=== PATIENT | female | born 1980 | race Caucasian/White ===

== ENCOUNTER 2021-07-24 18:41 | Emergency (ER) | payer SELFPAY ==
[~2021-07-24] VITALS: Ht 167.6 cm; Wt 70.9 kg
[2021-07-24 19:02] VITALS: BP 92/62
== END 2021-07-24 21:20 | disposition left against medical advice (07) ==
LOC: ER 18:42
DX: M79.605 Pain in left leg (principal); Z53.21 Procedure and treatment not carried out due to patient leaving prior to being seen by health care provider
CPT/HCPCS: 73630

== ENCOUNTER 2025-01-05 17:02 | Emergency (ER) | payer MEDICAID ==
[~2025-01-05] VITALS: Ht 165.1 cm; Wt 70.5 kg
[2025-01-05 17:17] VITALS: BP 128/75; PULSE 86; TEMP 98; O2SAT 100
[2025-01-05 18:19] VITALS: RESP 16
[2025-01-05] MEDS: ondansetron/PF 4mg/2ml inj IV ONE (18:19)
[2025-01-05] MEDS: morphine 4 MG/ML inj SYRINge IV ONE (18:19)
[2025-01-05 19:22] LABS: BASOPHILS % (AUTO) 0.2 % (0-1); EOSINOPHILS % (AUTO) 0.2 % (0-6); HEMATOCRIT 29.7 % (35.0-45.0); HEMOGLOBIN 9.1 g/dl (12.0-16.0); LYMPHOCYTES # (AUTO) 2.5 X10'3 (1.1-4.8); LYMPHOCYTES % (AUTO) 26.2 % (21-51); MEAN CORPUSCULAR HEMOGLOBIN 26.5 PG (27.0-31.0); MEAN CORPUSCULAR HGB CONC 30.5 g/dL (33.0-36.5); MEAN CORPUSCULAR VOLUME 86.7 FL (78-98); MONOCYTES # (AUTO) 0.4 X10'3 (0-0.9); MONOCYTES % (AUTO) 3.9 % (2-12); NEUTROPHILS # (AUTO) 6.7 X10'3 (1.8-7.7); NEUTROPHILS % (AUTO) 69.5 % (42-75); PLATELET COUNT 133 X10'3 (140-440); RED BLOOD COUNT 3.42 X10'6 (4.20-5.60); RED CELL DISTRIBUTION WIDTH 21.6 % (11.5-14.5); WHITE BLOOD COUNT 9.7 X10'3 (4.5-11.0)
[2025-01-05 19:44] LABS: ALANINE AMINOTRANSFERASE 36 U/L (12-78); ALBUMIN 3.4 G/DL (3.4-5.0); ALBUMIN/GLOBULIN RATIO 0.8 (1.1-1.5); ALKALINE PHOSPHATASE 87 IU/L (46-116); ANION GAP 8 (8-16); ASPARTATE AMINO TRANSFERASE 22 U/L (10-37); BILIRUBIN,TOTAL 0.3 MG/DL (0.1-1.0); BLOOD UREA NITROGEN 17 MG/DL (7-18); BUN/CREATININE RATIO 27.4 (10.0-20.0); CALCIUM 8.1 MG/DL (8.5-10.1); CHLORIDE 106 MMOL/L (99-107); CREATININE 0.62 MG/DL (0.40-0.90); GLUCOSE 118 MG/DL (70-104); LIPASE 14 U/L (16-77); POTASSIUM 4.7 MMOL/L (3.5-5.1); SODIUM 141 MMOL/L (135-145); TOTAL CARBON DIOXIDE 26.9 MMOL/L (24-32); TOTAL PROTEIN 7.8 G/DL (6.4-8.2); eCRCL 103 ML/MIN; eGFR > 90 ML/MIN
[2025-01-05 19:53] LABS: ANISOCYTOSIS 2+; POIKILOCYTOSIS 1+
[2025-01-05 19:54] LABS: BURR CELLS 1+; SCHISTOCYTES 1+
== END 2025-01-05 20:11 | disposition home or self-care (01) ==
LOC: ER 17:02
DX: S43.015A Anterior dislocation of left humerus, initial encounter (principal); S42.292A Other displaced fracture of upper end of left humerus, initial encounter for closed fracture; E11.649 Type 2 diabetes mellitus with hypoglycemia without coma; Z88.0 Allergy status to penicillin; Z88.2 Allergy status to sulfonamides; X58.XXXA Exposure to other specified factors, initial encounter; Y93.89 Activity, other specified; Y92.89 Other specified places as the place of occurrence of the external cause; Y99.8 Other external cause status
CPT/HCPCS: 23650; 73020; 73030; 80053; 82948; 83690; 85008; 85025; 96374; 96375; 99284; J2270; J2405; L3650

== ENCOUNTER 2025-02-01 10:07 | Emergency (ER) | payer MEDICAID ==
[~2025-02-01] VITALS: Ht 165.1 cm; Wt 68.2 kg
[2025-02-01 10:11] VITALS: BP 105/74; PULSE 92; RESP 18; TEMP 97.4; O2SAT 97
== END 2025-02-01 12:15 | disposition home or self-care (01) ==
LOC: ER 10:07
DX: G56.22 Lesion of ulnar nerve, left upper limb (principal); Z88.0 Allergy status to penicillin; Z88.2 Allergy status to sulfonamides
CPT/HCPCS: 99282

== ENCOUNTER 2025-03-04 12:36 | Emergency (ER) | payer MEDICAID ==
[~2025-03-04] VITALS: Ht 165.1 cm; Wt 80.0 kg
[2025-03-04 13:17] LABS: BASOPHILS % (AUTO) 0.3 % (0-1); EOSINOPHILS # (AUTO) 0.1 X10'3 (0-0.9); EOSINOPHILS % (AUTO) 0.5 % (0-6); HEMATOCRIT 35.4 % (35.0-45.0); HEMOGLOBIN 11.6 g/dl (12.0-16.0); LYMPHOCYTES # (AUTO) 4.1 X10'3 (1.1-4.8); LYMPHOCYTES % (AUTO) 40.3 % (21-51); MEAN CORPUSCULAR HEMOGLOBIN 27.1 PG (27.0-31.0); MEAN CORPUSCULAR HGB CONC 32.9 g/dL (33.0-36.5); MEAN CORPUSCULAR VOLUME 82.4 FL (78-98); MEAN PLATELET VOLUME 7.1 FL (7.4-10.4); MONOCYTES # (AUTO) 0.4 X10'3 (0-0.9); NEUTROPHILS # (AUTO) 5.6 X10'3 (1.8-7.7); NEUTROPHILS % (AUTO) 54.9 % (42-75); PLATELET COUNT 186 X10'3 (140-440); RED BLOOD COUNT 4.29 X10'6 (4.20-5.60); RED CELL DISTRIBUTION WIDTH 17.2 % (11.5-14.5); WHITE BLOOD COUNT 10.2 X10'3 (4.5-11.0)
[2025-03-04 13:35] LABS: ALANINE AMINOTRANSFERASE 41 U/L (12-78); ALBUMIN 3.5 G/DL (3.4-5.0); ALKALINE PHOSPHATASE 114 IU/L (46-116); ANION GAP 8 (8-16); ASPARTATE AMINO TRANSFERASE 18 U/L (10-37); BILIRUBIN,TOTAL 0.4 MG/DL (0.1-1.0); BLOOD UREA NITROGEN 15 MG/DL (7-18); BUN/CREATININE RATIO 18.3 (10.0-20.0); CALCIUM 8.7 MG/DL (8.5-10.1); CHLORIDE 100 MMOL/L (99-107); CREATININE 0.82 MG/DL (0.40-0.90); GLUCOSE 183 MG/DL (70-104); LIPASE 20 U/L (16-77); POTASSIUM 4.2 MMOL/L (3.5-5.1); SODIUM 137 MMOL/L (135-145); TOTAL CARBON DIOXIDE 28.9 MMOL/L (24-32); eCRCL 78 ML/MIN; eGFR 75 ML/MIN
[2025-03-04] MEDS: dextrose 50%-water 50ml dispensing syringe IV ONE ×2 (14:38→15:52)
[2025-03-04 15:47] LABS: BILIRUBIN,URINE NEGATIVE (Neg); CLARITY,URINE CLEAR (Clear); COLOR,URINE YELLOW (Yellow); GLUCOSE, URINE >=1000 mg/dl (Neg); KETONES,URINE NEGATIVE (Neg); LEUKOCYTE ESTERASE ,URINE NEGATIVE (Neg); NITRITES, URINE POSITIVE (Neg); OCCULT BLOOD,URINE TRACE-INTACT (Neg); PROTEIN,URINE NEGATIVE (Neg); URINE HCG NEGATIVE (NEG); UROBILINOGEN,URINE 0.2 E.U/dL (0.2-1.0)
[2025-03-04] MEDS: normal saline 1000ml 1,000 ML IV ONE (15:52)
[2025-03-04 15:55] VITALS: TEMP 98.4
[2025-03-04 15:56] LABS: UA COLLECTION TYPE CLN CATCH MIDSTREAM
[2025-03-04 16:01] LABS: BACTERIA,URINE 4+ /HPF (Neg); MUCUS STRANDS FEW /LPF (Neg); SQUAMOUS EPITHELIAL CELL,UR FEW /LPF (FEW); TRANSITIONAL EPI CELLS,URINE FEW /HPF
--- NOTE | 2025-03-04 16:09 | Physician Documentation ---
History of Present Illness Chief Complaint: Abdominal Pain Stated Complaint: ABD PAIN Time Seen by MD: 12:57 Mode of Arrival: EMS HPI Patient presents with right lower quadrant abdominal pain for the last 2-3 days.. Denies any fevers denies any urinary frequency. This all of her organs. She says that she has had episodes of appendicitis but still has her appendix. Medication Reconciliation Allergies: Coded Allergies: Penicillins (Verified Allergy, Unknown, 03/04/25) Sulfa (Sulfonamide Antibiotics) (Verified Allergy, Unknown, 03/04/25) diphenhydramine (Verified Allergy, Unknown, 03/04/25) lorazepam (Verified Allergy, Unknown, 03/04/25) Physical Exam Vital Signs: Temperature: 98.4, Source: Temporal, Heart Rate: 86, Respiratory Rate: 16, BP: 103/72, Pulse Oximetry: 99, Weight: 80.000 Oxygen Flow Rate: 0 Physical Exam General: Alert, no apparent distress. HEENT: PERRL, EOMI, no injection, moist mucous membranes. Gastrointestinal: Soft, nontender, lower quadrant pain with palpation Psychiatric: Normal mood and affect. Skin: Normal color, warm and dry. No edema, no ecchymosis. Progress Results/Orders Results/Orders Orders - ABDIAS RAYMUNDO [employer]ACHINE ATTENDANT Ct Abdomen Pelvis (03/04/25 16:04) Normal Saline 1000ml (Sodium Chloride 10 (03/04/25 15:30) Completed Orders - ABDIAS RAYMUNDO S[employer]ING MACHINE ATTENDANT Ct Abdomen Pelvis (03/04/25 16:04) Dextrose 50%-Water (Dextrose 50%-Water S (03/04/25 14:38) Dextrose 50%-Water (Dextrose 50%-Water S (03/04/25 15:30) Medications Received in ER Medications (Trade) Dose Ordered Sig/Anamika Route PRN Reason Start Time Stop Time Status Last Admin Dose Admin (dextrose 50%-water syringe) 50 ml ONCE ONCE IV 03/04/25 15:30 03/04/25 15:31 DC 03/04/25 15:52 50 ML Sodium Chloride 1,000 ml @ 1,000 mls/hr ONCE ONCE IV 03/04/25 15:30 03/04/25 16:29 03/04/25 15:52 1,000 MLS/HR Vital Signs 03/04/25 03/04/25 03/04/25 03/04/25 12:39 12:50 13:50 15:53 Pulse 103 90 Resp 16 16 16 18 B/P (MAP) 97/71 111/62 (78) Pulse Ox 98 98 O2 Flow Rate 0 0 03/04/25 15:55 Temp 98.4 Pulse 86 Resp 16 B/P (MAP) 103/72 (82) Pulse Ox 99 O2 Flow Rate 0 Laboratory Tests Test 03/04/25 13:05 03/04/25 14:37 03/04/25 15:02 03/04/25 15:10 White Blood Count 10.2 Red Blood Count 4.29 Hemoglobin 11.6 L Hematocrit 35.4 Mean Corpuscular Volume 82.4 Mean Corpuscular Hemoglobin 27.1 Mean Corpuscular Hemoglobin Concent 32.9 L Red Cell Distribution Width 17.2 H Platelet Count 186 Mean Platelet Volume 7.1 L Neutrophils (%) (Auto) 54.9 Lymphocytes (%) (Auto) 40.3 Monocytes (%) (Auto) 4.0 Eosinophils (%) (Auto) 0.5 Basophils (%) (Auto) 0.3 Neutrophils # (Auto) 5.6 Lymphocytes # (Auto) 4.1 Monocytes # (Auto) 0.4 Eosinophils # (Auto) 0.1 Basophils # (Auto) 0.0 CBC Comment Sodium Level 137 Potassium Level 4.2 Chloride Level 100 Carbon Dioxide Level 28.9 Anion Gap 8 Blood Urea Nitrogen 15 Creatinine 0.82 Estimated GFR/1.73 m2 75 BUN/Creatinine Ratio 18.3 Glucose Level 183 H Calcium Level 8.7 Total Bilirubin 0.4 Aspartate Amino Transf (AST/SGOT) 18 Alanine Aminotransferase (ALT/SGPT) 41 Alkaline Phosphatase 114 Total Protein 7.0 Albumin 3.5 Globulin 3.5 Albumin/Globulin Ratio 1.0 L Lipase 20 Chemistry Comments Glucometer 46 *L 160 H Urine Specimen Description Cln catch midstream Urine Color Yellow Urine Clarity Clear Urine pH 6.0 Urine Specific Bowie 1.010 Urine Protein Negative Urine Glucose (UA) >=1000 H Urine Ketones Negative Urine Occult Blood Trace-intact Urine Nitrite Positive H Urine Bilirubin Negative Urine Urobilinogen 0.2 Urine Leukocyte Esterase Negative Urine RBC 3-10 Urine WBC 10-20 H Urine Squamous Epithelial Cells Few Urine Transitional Epithelial Cells Few Urine Bacteria 4+ Urine Mucus Few Urine Culture Indicated Indicated Volume Urine Centrifuged 10 ml Urine HCG, Qualitative Negative Urine Comment Medical Decision Making Findings Presents with a positive urinalysis along with having positive nitrites. Differential Dx:Considerations: Include: AAA, -Complete, - Incomplete, -Inevitable, -Missed, -Threatened, Abruptio placentae, Angina/DC, Aortic dissection, Appendicitis, Bowel obstruction, Cholangitis, Cholelithasis, Constipation, Diverticular disease, Esophageal rupture, Esophagitis, Gastritis/PUD, Gastroenteritis, GI hemorrhage, Hernia, Hepatitis, Inflammatory BD, Ischemic bowel, Ovarian cyst/torsion, Pancreatitis, PID, Porphyria, Trauma, intraabdominal, Urinary obstruction, Urinary tract infection, Urolithiasis, Other Departure Disposition: HOME / SELF CARE / HOMELESS Impression: Primary Impression: Acute urinary tract infection Condition: Stable Discharge Instructions: Urinary Tract Infection, Adult Referrals: NO PRIMARY CARE PROVIDER (PCP) Prescriptions Cephalexin*Monohydrate* (Keflex*) 500 Mg Capsule 1 CAP PO QID, #40 CAP Prov: ABDIAS RAYMUNDO NP 03/04/25 Education Educated: Patient Signature Scribe Signature: c Attestation: The note accurately reflects work and decisions made by me.Abdias Raymundo - KETURAH 03/04/25 16:08 ABDIAS RAYMUNDO NP March 04, 2025 16:09
--- NOTE | 2025-03-04 16:31 | RADIOLOGY REPORT ---
EXAM: CT Abdomen and Pelvis Without Intravenous Contrast CLINICAL INDICATION: rlq TECHNIQUE: Axial computed tomography images of the abdomen and pelvis without intravenous contrast. This CT exam was performed using one or more of the following dose reduction techniques: automated exposure control, adjustment of the mA and/or kV according to patient size, and/or use of iterative r econstruction technique. CONTRAST: COMPARISON: None FINDINGS: LUNG BASES: Unremarkable. No mass. No consolidation. MEDIASTINUM: Small esophageal hiatal hernia. ABDOMEN: LIVER: Hepatomegaly with fatty infiltration. GALLBLADDER AND BILE DUCTS: Gallbladder is surgically absent. No ductal dilation. PANCREAS: Unremarkable. No ductal dilation. SPLEEN: Unremarkable. No splenomegaly. ADRENALS: Unremarkable. No mass. KIDNEYS AND URETERS: Unremarkable. No obstructing stones. No hydronephrosis. STOMACH AND BOWEL: Constipation with suggestion of fecal impaction of the rectum. Fecal retention in the colon consistent with constipation. No obstruction. No mucosal thickening. PELVIS: APPENDIX: No findings to suggest acute appendicitis. BLADDER: Unremarkable. No stones. REPRODUCTIVE: Unremarkable as visualized. ABDOMEN and PELVIS: INTRAPERITONEAL SPACE: Unremarkable. No free air. No significant fluid collection. BONES/JOINTS: Mild superior endplate compression deformity of L1 vertebral body. No dislocation. SOFT TISSUES: Unremarkable. VASCULATURE: Scattered calcified atherosclerotic disease of aorta. No abdominal aortic aneurysm. LYMPH NODES: Unremarkable. No enlarged lymph nodes. OTHER FINDINGS: . . . IMPRESSION: 1. Constipation with suggestion of fecal impaction of the rectum. 2. Small esophageal hiatal hernia. 3. Hepatomegaly with fatty infiltration. 4. Fecal retention in the colon consistent with constipation.
[2025-03-04] MEDS ORDERED: CEPH-585 PO (16:35)
[2025-03-04 16:53] VITALS: BP 110/71; PULSE 77; RESP 15; O2SAT 99
== END 2025-03-04 16:55 | disposition home or self-care (01) ==
LOC: ER 12:37
DX: N39.0 Urinary tract infection, site not specified (principal); Z88.0 Allergy status to penicillin; Z88.2 Allergy status to sulfonamides
CPT/HCPCS: 36415; 74176; 80053; 81001; 81025; 82948; 83690; 85025; 87088; 87186; 96361; 96374; 99285; J3490; J7030; 87077

== ENCOUNTER 2025-04-12 07:53 | Emergency (ER) | payer MEDICAID ==
[~2025-04-12] VITALS: Ht 165.1 cm; Wt 78.0 kg
[~2025-04-12 07:53] MED LIST: CEPH-585 PO
[2025-04-12] MEDS ORDERED: POLOS LEFTEYE (08:56)
--- NOTE | 2025-04-12 08:56 | Physician Documentation ---
History of Present Illness ~ Chief Complaint: Eye Pain Stated Complaint: STYE IN EYE Time Seen by MD: 08:44 HPI 44-year-old female presenting with left eye irritation. She states that she woke up this morning and her eye was crusted shut. There was a lot of dried purulent drainage. She clean the eye and now feels better however she states that it still feels slightly irritated and itchy. She states that her vision is not affected and there are no other associated symptoms. She does not wear contact lenses or glasses. No reports of any trauma to the eye. Medication Reconciliation Allergies: Coded Allergies: Penicillins (Verified Allergy, Unknown, 03/04/25) Sulfa (Sulfonamide Antibiotics) (Verified Allergy, Unknown, 03/04/25) diphenhydramine (Verified Allergy, Unknown, 03/04/25) lorazepam (Verified Allergy, Unknown, 03/04/25) Scheduled Cephalexin*Monohydrate* (Keflex*), 1 CAP PO QID Past Medical History Past Medical History: Diabetes Review of Systems All Other Systems at this time: Reviewed and Negative Physical Exam Vital Signs: Temperature: 97.4, Source: Oral, Heart Rate: 89, Respiratory Rate: 15, BP: 128/75, Pulse Oximetry: 99, Weight: 78.050 Oxygen Flow Rate: 0 Physical Exam I have reviewed the triage vitals. CONST: Well developed and well nourished. In no acute distress HENT: Head Atraumatic EYES: Pupils are equal, round and reactive to light. Left eye with slightly injected conjunctivae and sclerae. NECK: Normal range of motion. Supple. CARDIO: Normal rate and regular rhythm. No murmurs, rubs, or gallops. S1, S2. PULM/CHEST: No respiratory distress. Lungs clear to auscultation. No wheeze ABD: Soft and nontender. Nondistended. Bowel sounds normal. No guarding. : Exam deferred MSK: No edema. No deformity. NEURO: Alert and oriented to person, place and time. Moving all extremities SKIN: Warm and dry. PSYCH: Normal mood and affect. Good eye contact. Progress Results/Orders Results/Orders Vital Signs 04/12/25 04/12/25 07:54 08:28 Temp 97.4 97.4 Pulse 89 89 Resp 15 15 B/P (MAP) 128/75 128/75 (92) Pulse Ox 99 99 O2 Flow Rate 0 Medical Decision Making Additional Comment 44-year-old female presenting with left eye conjunctivitis. There are no other signs or symptoms that are concerning and indicate any further workup. Patient's visual acuity is normal. She has no pain. Vitals are stable and she looks clinically well. At this point she is stable and safe for discharge home. I will prescribe her some Polytrim eye drops and advise her to take this medication as prescribed. Also advised on continuing warm compresses. Monitor for improvement and resolution and follow up with PCP as needed. Return to the ED with any acutely worsening symptoms. Departure Disposition: HOME / SELF CARE / HOMELESS Impression: Primary Impression: Conjunctivitis, left eye Condition: Stable Discharge Instructions: Bacterial Conjunctivitis, Adult Additional Instructions: Take your medication as prescribed. Continue warm compresses until resolution of symptoms. Follow up with PCP as needed. Return to the ED with any acutely worsening symptoms. Referrals: NO PRIMARY CARE PROVIDER (PCP) Prescriptions Polymyxin B Sulfate/Tmp Opth* (Polytrim Ophthalmic Drops*) 10 Ml Bottle 2 DRP LEFTEYE Q6H for 7 Days, #10 ML Prov: CARMEN SUTHERLAND MD 04/12/25 Signature Scribe Signature: 1 Attestation: 1 CARMEN SUTHERLAND MD Apr 12, 2025 08:56
[2025-04-12 08:59] VITALS: BP 123/72; PULSE 89; RESP 15; TEMP 97.4; O2SAT 99
== END 2025-04-12 09:03 | disposition home or self-care (01) ==
LOC: ER 07:53
DX: H10.9 Unspecified conjunctivitis (principal); E11.9 Type 2 diabetes mellitus without complications; Z88.0 Allergy status to penicillin; Z88.2 Allergy status to sulfonamides
CPT/HCPCS: 99283

== ENCOUNTER 2025-06-23 13:55 | Emergency (ER) | payer MEDICAID ==
[~2025-06-23] VITALS: Ht 165.1 cm; Wt 78.8 kg
[2025-06-23 14:16] VITALS: BP 107/69; PULSE 97; RESP 18; TEMP 98.7; O2SAT 97
--- NOTE | 2025-06-23 14:28 | Physician Documentation ---
History of Present Illness ~ Chief Complaint: Bite-insect Stated Complaint: ABSCESS Time Seen by MD: 14:31 HPI This is a 45-year-old female who presents with an area of pain and swelling to her left posterior shoulder present and increasing for the past two days. No other acute symptoms or concerns reported. Tetanus within 5 years?: Yes Medication Reconciliation Allergies: Coded Allergies: Penicillins (Verified Allergy, Unknown, 03/04/25) Sulfa (Sulfonamide Antibiotics) (Verified Allergy, Unknown, 03/04/25) diphenhydramine (Verified Allergy, Unknown, 03/04/25) lorazepam (Verified Allergy, Unknown, 03/04/25) Scheduled Cefuroxime Axetil (Cefuroxime), 1 TAB PO Q12H Cephalexin*Monohydrate* (Keflex*), 1 CAP PO QID Past Medical History Past Medical History: Diabetes Review of Systems ROS As stated above in the HPI, otherwise all systems are reviewed and negative. Physical Exam Vital Signs: Temperature: 98.7, Source: Oral, Heart Rate: 97, Respiratory Rate: 18, BP: 107/69, Pulse Oximetry: 97, Weight: 78.800 Physical Exam VITALS: Reviewed and as above. GENERAL: Alert, nontoxic appearing, no apparent distress. RESPIRATORY: No increased work of breathing, no respiratory distress, speaking in full clear sentences SKIN: Skin of left posterior shoulder less than 1 cm round raised pustule with surrounding mild erythema, tender to palpation, approximately 6 cm x 6 cm area of surrounding induration, no fluctuance Progress Results/Orders Results/Orders Vital Signs 06/23/25 14:16 Temp 98.7 Pulse 97 Resp 18 B/P (MAP) 107/69 Pulse Ox 97 Medical Decision Making Findings This 45-year-old female presented with an area of pain and swelling to her left posterior shoulder the past two days. Physical exam demonstrated an area of mild erythema and induration consistent with cellulitis, there was no abscess amenable to drainage as there was no fluctuance on physical exam and a very small pustule at the center. There was no evidence of deep space infection and it was reassuring patient reported no fever, chills, or other systemic symptoms. Remainder of physical exam was benign and patient is appropriate for outpatient follow up, patient discharged with a course of oral antibiotics for cellulitis. Patient provided home care instructions return to care precautions, and follow up instructions which he verbalized understanding of. Differential Dx:Considerations: Include: Abrasion, Allergic reaction, Anaphylaxis, Cellulitis, Insect envenomation, Neurovascular injury, Punture wound, Retained foreign body, Other (Abscess) Departure Time of Disposition: 15:01 Disposition: 01 HOME / SELF CARE / HOMELESS Impression: Primary Impression: Cellulitis Qualified Codes: L03.312 - Cellulitis of back [any part except buttock] Condition: Improved Discharge Instructions: Cellulitis, Adult Additional Instructions: Keep the area clean and dry, take the antibiotics as prescribed. You may use ibuprofen and or Tylenol as directed by [id number] packaging as needed for pain. Please follow up with your primary care provider in the next few days. Please return to the emergency department for any new or worsening concerning symptoms including but not limited to worsening swelling to the area, or if you develop a fever over 100.4 that does not lower with ibuprofen or Tylenol. Referrals: NO PRIMARY CARE PROVIDER (PCP) Prescriptions Cefuroxime Axetil (Cefuroxime) 500 Mg Tablet 1 TAB PO Q12H for 7 Days, #14 TAB 0 Refills Prov: DINO PAUL 06/23/25 Education Educated: Patient Educated regarding: diagnosis, treatment, prognosis, need for follow up Signature Scribe Signature: No scribe Attestation: The note accurately reflects work and decisions made by me.ROLO Granados 06/24/25 15:37 DINO PAUL Jun 23, 2025 14:28
[2025-06-23] MEDS ORDERED: CEFU500T66 PO (15:02)
== END 2025-06-23 15:11 | disposition home or self-care (01) ==
LOC: ER 13:55
DX: L03.114 Cellulitis of left upper limb (principal); E11.9 Type 2 diabetes mellitus without complications; Z88.0 Allergy status to penicillin; Z88.2 Allergy status to sulfonamides; Z88.8 Allergy status to other drugs, medicaments and biological substances; Z79.899 Other long term (current) drug therapy
CPT/HCPCS: 99283

== ENCOUNTER 2025-07-02 10:11 | Emergency (ER) | payer MEDICAID ==
[~2025-07-02] VITALS: Ht 165.1 cm; Wt 112.0 kg
[~2025-07-02 10:11] MED LIST changes: +CEFU500T66 PO
[2025-07-02 10:23] VITALS: BP 112/64; PULSE 87; RESP 16; TEMP 97.4; O2SAT 100
--- NOTE | 2025-07-02 11:11 | Physician Documentation ---
History of Present Illness ~ Chief Complaint: Wound Re-Check Stated Complaint: CELLULITIS Time Seen by MD: 11:19 HPI This is a 45-year-old female who presents back to the emergency department with concern for erythema and pain to posterior left shoulder after being diagnosed with cellulitis one-week prior, patient reports that the areas not improved despite antibiotics. Patient additionally reports history of cellulitis to her leg that required admission with subsequent treatment with Levaquin outpatient, patient reports this treatment was effective. Tetanus within 5 years?: Yes Medication Reconciliation Allergies: Coded Allergies: Penicillins (Verified Allergy, Unknown, 03/04/25) Sulfa (Sulfonamide Antibiotics) (Verified Allergy, Unknown, 03/04/25) daptomycin (Unverified Allergy, Unknown, 07/02/25) diphenhydramine (Verified Allergy, Unknown, 03/04/25) lorazepam (Verified Allergy, Unknown, 03/04/25) Scheduled Cefuroxime Axetil (Cefuroxime), 1 TAB PO Q12H Cephalexin*Monohydrate* (Keflex*), 1 CAP PO QID Clindamycin HCl (Clindamycin HCl), 3 CAP PO Q8H Past Medical History Past Medical History: Diabetes Review of Systems ROS As stated above in the HPI, otherwise all systems are reviewed and negative. Physical Exam Vital Signs: Temperature: 97.4, Source: Temporal, Heart Rate: 87, Respiratory Rate: 16, BP: 112/64, Pulse Oximetry: 100, Weight: 112.000 Oxygen Flow Rate: 0 Physical Exam VITALS: Reviewed and as above. GENERAL: Alert, nontoxic appearing, no apparent distress. RESPIRATORY: No increased work of breathing, no respiratory distress, speaking in full clear sentences SKIN: Erythema to posterior aspect of the left shoulder and upper left arm, area of induration 7 cm x 8 cm, no fluctuance, area tender to palpation, no pain to deep palpation surrounding area Progress Results/Orders Results/Orders Completed Orders - DINO PAUL Cbc/Diff (07/02/25 11:19) BMP (07/02/25 11:19) Vital Signs 07/02/25 10:23 Temp 97.4 Pulse 87 Resp 16 B/P (MAP) 112/64 Pulse Ox 100 O2 Flow Rate 0 Laboratory Tests Test 07/02/25 11:36 White Blood Count 8.5 Red Blood Count 3.76 L Hemoglobin 9.2 L Hematocrit 29.7 L Mean Corpuscular Volume 78.9 Mean Corpuscular Hemoglobin 24.5 L Mean Corpuscular Hemoglobin Concent 31.1 L Red Cell Distribution Width 17.6 H Platelet Count 332 Mean Platelet Volume 6.7 L Neutrophils (%) (Auto) 58.2 Lymphocytes (%) (Auto) 35.8 Monocytes (%) (Auto) 4.3 Eosinophils (%) (Auto) 1.1 Basophils (%) (Auto) 0.6 Neutrophils # (Auto) 5.0 Lymphocytes # (Auto) 3.1 Monocytes # (Auto) 0.4 Eosinophils # (Auto) 0.1 Basophils # (Auto) 0.0 CBC Comment Sodium Level 141 Potassium Level 5.0 Chloride Level 105 Carbon Dioxide Level 30.1 Anion Gap 6 L Blood Urea Nitrogen 16 Creatinine 0.63 Estimated GFR/1.73 m2 > 90 BUN/Creatinine Ratio 25.4 H Glucose Level 133 H Calcium Level 8.6 Albumin 2.9 L Chemistry Comments Medical Decision Making Additional info obtained from: old records Findings This is a 45-year-old female who presented with continued erythema and swelling to posterior aspect of left shoulder, patient has been seen previously and diagnosed with cellulitis and discharged on course of oral antibiotics though cellulitis has spread, there was no evidence of abscess or deep space infection on physical exam in his reassuring patient reports no fever chills, other systemic symptoms. Physical exam is consistent with cellulitis based on erythema tenderness, and induration to the area, this does appear uncomplicated however did not respond to initial antibiotic therapy, due to patient reporting some purulent discharge from the area patient will be changed to clindamycin for broader coverage of Staphylococcus. Patient is otherwise well-appearing and appropriate for outpatient follow up with stable vital signs. Patient provided home care instructions return to care precautions, and follow up instructions which she verbalized understanding of Differential Dx:Considerations: Include: Abscess, Cellulitis, Other (Myositis, necrotizing fasciitis) Departure Time of Disposition: 11:54 Disposition: 01 HOME / SELF CARE / HOMELESS Impression: Primary Impression: Cellulitis Qualified Codes: L03.114 - Cellulitis of left upper limb Condition: Improved Discharge Instructions: Cellulitis, Adult, [id number] Additional Instructions: Please take the antibiotics as prescribed, please return if your cellulitis is worsening, otherwise keep the area clean dry and covered. Please follow up with your primary care provider in the next few days. Please return to the emergency department for any new or worsening concerning symptoms including but not limited to fever over 100.4 that does not lower with ibuprofen or Tylenol. Referrals: NO PRIMARY CARE PROVIDER (PCP) Prescriptions Clindamycin HCl (Clindamycin HCl) 150 Mg Capsule 3 CAP PO Q8H for 7 Days, #63 CAP Prov: DINO PAUL 07/02/25 Education Educated: Patient Educated regarding: diagnosis, treatment, prognosis, need for follow up Signature Scribe Signature: No scribe Attestation: The note accurately reflects work and decisions made by me.ROLO Granados 07/02/25 21:14 DINO PAUL Jul 02, 2025 11:11
[2025-07-02 11:43] LABS: MEAN PLATELET VOLUME 6.7 FL (7.4-10.4); RED CELL DISTRIBUTION WIDTH 17.6 % (11.5-14.5)
[2025-07-02 11:55] LABS: CREATININE 0.63 MG/DL (0.40-0.90); TOTAL CARBON DIOXIDE 30.1 MMOL/L (24-32); eCRCL 100 ML/MIN; eGFR > 90 ML/MIN
[2025-07-02] MEDS ORDERED: CLIN-15 PO (11:59)
== END 2025-07-02 12:07 | disposition home or self-care (01) ==
LOC: ER 10:11
DX: L03.114 Cellulitis of left upper limb (principal); E11.9 Type 2 diabetes mellitus without complications; Z88.0 Allergy status to penicillin; Z88.2 Allergy status to sulfonamides
CPT/HCPCS: 36415; 80048; 85025; 99283

== ENCOUNTER 2025-07-22 09:05 | Emergency (ER) | payer MEDICAID ==
[~2025-07-22] VITALS: Ht 167.6 cm; Wt 89.0 kg
--- NOTE | 2025-07-22 09:38 | Physician Documentation ---
History of Present Illness ~ Chief Complaint: Hypoglycemia Stated Complaint: LOW BG Time Seen by MD: 09:24 Primary Medical Doctor: rashmi Mode of Arrival: EMS HPI 45-year-old female patient with a history of diabetes mellitus on insulin who is also edentulous was brought to the emergency room by ambulance because her dexcom is showing 10 to 20 and EMS started her on D10 W and upon arrival to the emergency room her blood sugar is 115. She was found to be cold. She told me that she took long-acting insulin at dinner time and she said probably 20 units subQ. No other symptoms. Medication Reconciliation Allergies: Coded Allergies: Penicillins (Verified Allergy, Unknown, 07/22/25) Sulfa (Sulfonamide Antibiotics) (Verified Allergy, Unknown, 07/22/25) daptomycin (Unverified Allergy, Unknown, 07/22/25) diphenhydramine (Verified Allergy, Unknown, 07/22/25) lorazepam (Verified Allergy, Unknown, 07/22/25) Scheduled Cefuroxime Axetil (Cefuroxime), 1 TAB PO Q12H Cephalexin*Monohydrate* (Keflex*), 1 CAP PO QID Past Medical History Past Medical History: Diabetes Review of Systems ROS As stated above in the HPI, otherwise all systems are reviewed and negative. Physical Exam Vital Signs: Temperature: 94.2, Source: Rectal, Heart Rate: 83, Respiratory Rate: 18, BP: 119/72, Pulse Oximetry: 96, Weight: 89.000 Oxygen Flow Rate: 0 Physical Exam Reviewed vital signs and they are well within normal range. Const: Not in acute cardiopulmonary distress Head: Atraumatic Eyes: Normal Conjunctiva ENT: Normal External Ears, Nose and Mouth. Moist mucous membranes Neck: Full range of motion. No meningismus Resp: Clear to auscultation bilaterally. Normal work of breathing Cardio: Regular rate and rhythm, no murmurs. Skin well perfused, Abd: Soft, non-tender, non-distended. Normal bowel sounds. No rebound or guarding Skin: No petechiae or rashes. Warm and dry Back: No midline or flank tenderness Ext: No cyanosis, or edema Neuro: Awake and alert Psych: Normal Mood and Affect Progress Results/Orders Results/Orders Orders - AARON PRINGLE MD Monitor (07/22/25 09:38) Saline Lock (07/22/25 09:38) Accucheck (07/22/25 ) Completed Orders - OHAARON Leon MD Cbc/Diff (07/22/25 09:38) BMP (07/22/25 09:38) Normal Saline 1000ml (0.9% Sodium Chlori (07/22/25 09:40) 75g Carb Controlled (07/22/25 Lunch) Glucose (07/22/25 11:32) Vital Signs 07/22/25 07/22/25 07/22/25 07/22/25 09:09 09:49 10:02 11:43 Temp 94.2 Pulse 83 84 86 Resp 18 18 14 16 B/P (MAP) 119/72 114/77 (89) 128/83 (98) Pulse Ox 96 97 97 O2 Flow Rate 0 0 0 07/22/25 07/22/25 13:13 13:46 Temp 97.7 Pulse 84 80 Resp 16 16 B/P (MAP) 130/92 (105) 114/77 Pulse Ox 99 98 O2 Flow Rate 0 Laboratory Tests Test 07/22/25 09:13 07/22/25 09:51 07/22/25 09:59 07/22/25 11:16 Glucometer 116 H 293 H 123 H White Blood Count 5.6 Red Blood Count 4.10 L Hemoglobin 9.5 L Hematocrit 31.0 L Mean Corpuscular Volume 75.6 L Mean Corpuscular Hemoglobin 23.3 L Mean Corpuscular Hemoglobin Concent 30.8 L Red Cell Distribution Width 17.6 H Platelet Count 179 Mean Platelet Volume 7.2 L Neutrophils (%) (Auto) 60.6 Lymphocytes (%) (Auto) 31.2 Monocytes (%) (Auto) 6.3 Eosinophils (%) (Auto) 1.4 Basophils (%) (Auto) 0.5 Neutrophils # (Auto) 3.4 Lymphocytes # (Auto) 1.8 Monocytes # (Auto) 0.4 Eosinophils # (Auto) 0.1 Basophils # (Auto) 0.0 CBC Comment Sodium Level 144 Potassium Level 3.8 Chloride Level 111 H Carbon Dioxide Level 26.6 Anion Gap 6 L Blood Urea Nitrogen 18 Creatinine 0.55 Estimated GFR/1.73 m2 > 90 BUN/Creatinine Ratio 32.7 H Glucose Level 47 *L Calcium Level 8.3 L Albumin 3.2 L Chemistry Comments Test 07/22/25 11:50 07/22/25 11:51 07/22/25 12:53 Glucometer 126 H 176 H Glucose Level 125 H Medical Decision Making Findings ER Course/Med. Decision Making REVIEW of RECORD(S): Previous medical records here and/or external medical records, such as that provided directly by the patient, by EMS and/or outside medical facilities, if available, were reviewed. COMORBIDITIES diabetes mellitus MDM During the physical examination, the findings suggestive of acute life- threatening condition such as JVD, tracheal deviation, acidotic breathing, noisy stridorous breath sounds, pulses paradoxus, muffled heart sounds, unequal breath sounds, abdominal rigidity and rebound tenderness, focal neurological deficits, cool clammy skin, severe hypotension, severe tachycardia or bradycardia are a bsent. Patient presenting for hyperglycemia. Vital signs reviewed. The patient is taking only one dose of insulin a day and last night she used 20 units of long- acting insulin subQ. This is according to her physician. Patient is hemodynamically stable and does not meet SIRS criteria. Patient appears nontoxic on exam. Except for mild hypothermia physical examination is unremarkable. CBC and CMP essentially normal except the 1st blood sugar was 47. TREATMENT/DISPOSITION: The patient's presentation is most consistent with hypoglycemia. Prior to discharge I independently reviewed the patients past medical history, clinical risk factors, comorbidities, and social determinants of health and diagnostic studies. The patient appears to be a safe discharge home with close outpatient PCP follow-up. I have told the patient that to cut down the long at insulin to 10 units per subcu and then follow up with primary care provider in 1 to 3 days. I had extensive discussion with patient regarding management, disposition and follow up. Potential symptom etiology was discussed, and shared decision making occurred. They will return immediately if symptoms worsen, do not improve, or they have any further concerns. Prior to discharge all questions were addressed. The patient is aware that the purpose of this visit was to screen for an acute medical emergency requiring emergent stabilization. Chronic and occult conditions, including malignancies, have not been ruled out. If patient is unable to arrange follow-up as stated in the discharge instructions and further discussed with the patient directly, or their symptoms worsen/become more concerning, they are to return to the ER for reassessment immediately. Prior to leaving the department, the patient has a plan for discharge, has decision making capacity, and acknowledges an understanding of the verbal and written discharge instructions. SOCIAL DETERMINANTS: Patient demonstrates no obvious challenges to following up as an outpatient although did consider whether patient had any barriers to access care including homelessness, Food insecurity, Mental health, Substance abuse, Disabilities, Limited access to medical care, Difficulty finding transport, Insurance issues, Refusal of care or testing due to cost concerns. MEDICAL SCREENING: I have discussed with the patient the non-definitive nature of the emergency screening exam, diagnosis and the possibility of a variety of conditions which may present in atypically benign fashion and stressed the importance of close follow-up for definitive diagnosis and treatment. We discussed signs and symptoms that should be watched for which might indicate a more serious or new condition that would benefit from emergency reevaluation and the patient has verbalized understanding to this and my other detailed discharge instructions and promises compliance. I have referred him back to his primary physician of course for a more detailed evaluation and more definitive diagnoses. DISCLAIMER: Inadvertent spelling and grammatical errors are likely due to EMR/dictation software use and do not reflect on the overall quality of patient care. Note that the electronic time recorded on this note does not necessarily reflect the actual time of the patient encounter. Differential Dx:Considerations: Include: CVA, Encephalopathy, Hepatic disease, Hypoglycemia, Seizure, Sepsis, Decr. jenni. intake induced, Insulin induced, Other Departure Disposition: 01 HOME / SELF CARE / HOMELESS Impression: Primary Impression: Hypoglycemia associated with diabetes Condition: Stable Discharge Instructions: Hypoglycemia, [id number] Additional Instructions: Thank you for coming to our Emergency Department today. Please take long-acting insulin 10 units subQ once a day for the time being and follow up with your primary care provider prasanna. Please ask your nurse or provider if you have questions about your care today and do not leave until all your questions have been answered. Please use any medications given as directed and follow-up with your doctor (or the doctor you were referred to) in the next 1-3 days. Your primary care doctor can help to coordinate outpatient specialty care and provide authorization for specialty referral as needed. If you do not have a primary care doctor you may follow up at a [facility]. You may also use motrin and tylenol as needed for fever and/or pain unless instructed otherwise by your provider or nurse. Indications for more urgent follow-up have been discussed, but you may return to the Emergency Department at ANY time for any worrisome or worsening symptoms. County Facilities: County Facilities: [facility]: Main [place] Address:[address] [place] [address] [facility]: [place] Address:[address] [place] [address] [facility]: Telemedicine Address:[address] [place] [address] [facility] Address:[address] [place] [address] Registration Billing Pharmacy Referrals [facility] Address:[address] [place] [id number] Referrals: NO PRIMARY CARE PROVIDER (PCP) Education Educated: Patient Educated regarding: diagnosis, treatment, need for follow up Signature Scribe Signature: No scribe Attestation: My dictation AARON PRINGLE MD Jul 22, 2025 09:38
[2025-07-22] MEDS: normal saline 1000ml 1,000 ML IV ONE (09:58)
[2025-07-22 10:24] LABS: MEAN PLATELET VOLUME 7.2 FL (7.4-10.4); RED CELL DISTRIBUTION WIDTH 17.6 % (11.5-14.5)
[2025-07-22 10:33] LABS: CREATININE 0.55 MG/DL (0.40-0.90); TOTAL CARBON DIOXIDE 26.6 MMOL/L (24-32); eCRCL 120 ML/MIN; eGFR > 90 ML/MIN
[2025-07-22 13:46] VITALS: BP 114/77; PULSE 80; RESP 16; TEMP 97.7; O2SAT 98
== END 2025-07-22 13:53 | disposition home or self-care (01) ==
LOC: ER 09:06
DX: E11.649 Type 2 diabetes mellitus with hypoglycemia without coma (principal); Z88.0 Allergy status to penicillin; Z88.2 Allergy status to sulfonamides; Z88.1 Allergy status to other antibiotic agents; Z79.4 Long term (current) use of insulin; Z79.899 Other long term (current) drug therapy
CPT/HCPCS: 36415; 80048; 82947; 82948; 85025; 96360; 96361; 99285; J7030; C1758

== ENCOUNTER 2025-09-24 22:16 | Inpatient (IN) | payer MEDICAID ==
[~2025-09-24] VITALS: Ht 165.1 cm; Wt 83.0 kg
--- NOTE | 2025-09-24 23:07 | Physician Documentation ---
History of Present Illness ~ Chief Complaint: Diabetic Complication Stated Complaint: HYPOGLYCEMIA Time Seen by MD: 23:03 Primary Medical Doctor: rashmi BAUM Patient presents to the emergency room for evaluation of hypoglycemic episode. EMS found the patient to be severely hypoglycemic and administered dextrose EN route. By the time that has able to evaluate patient she was altered and we reperformed her Accu-Chek which showed significant hypoglycemia again. After administering D5 patient is now mentating well. She denies any fevers cough cold congestion dysuria or abdominal pain. No changes of insulin. She demonstrates insight to decrease insulin in his she eats less. She does volunteer that she did eat less food today but has not taken any insulin in the past two days because of problems with hypoglycemia. Significant other at bedside states that has up all night last night watching her hypoglycemia. He states he does not know what to do that has that has not even giving her any insulin Medication Reconciliation Allergies: Coded Allergies: Penicillins (Verified Allergy, Unknown, 07/22/25) Sulfa (Sulfonamide Antibiotics) (Verified Allergy, Unknown, 07/22/25) daptomycin (Unverified Allergy, Unknown, 07/22/25) diphenhydramine (Verified Allergy, Unknown, 07/22/25) lorazepam (Verified Allergy, Unknown, 07/22/25) Scheduled Cefuroxime Axetil (Cefuroxime), 1 TAB PO Q12H Cephalexin*Monohydrate* (Keflex*), 1 CAP PO QID Past Medical History Past Medical History: Diabetes Review of Systems ROS All review of systems negative except as per HPI Physical Exam Vital Signs: Temperature: 97.8, Source: Oral, Heart Rate: 80, Respiratory Rate: 16, BP: 119/72, Pulse Oximetry: 97, Weight: 83.000 Physical Exam General: Patient is awake, alert, oriented x4 in no acute distress Head: Normocephalic and atraumatic. Eyes: Conjunctival normal. EOMI. PERRL. ENT: Mucous membranes moist. Neck: Supple, trachea is midline. Chest: Clear to auscultation bilaterally without rales, rhonchi, or wheezes. There is no accessory muscle use or retractions. Cardiac: RRR without murmurs, gallops, or rubs. Abd: Soft, nondistended, nontender, with normoactive bowel sounds. No guarding, rebound, or rigidity. Progress Results/Orders Results/Orders Orders - GEORGE CASTRO MD Urinalysis, Cult If Indicated (09/24/25 23:05) Chest,Single View (09/24/25 23:05) Hcg, Ur Ql (09/24/25 23:05) Dextrose 5%-Normal Saline (Dextrose 5%-N (09/24/25 23:15) Completed Orders - GEORGE CASTRO MD Electrocardiogram (09/24/25 23:05) MG (09/24/25 23:05) Chest,Single View (09/24/25 23:05) Procalcitonin (09/24/25 23:05) BMP (09/24/25 23:05) Dextrose 50%-Water (Dextrose 50%-Water S (09/24/25 23:11) Medications Received in ER Medications (Trade) Dose Ordered Sig/Anamika Route PRN Reason Start Time Stop Time Status Last Admin Dose Admin (dextrose 50%-water syringe) 50 ml STK-MED ONCE IV 09/24/25 23:11 09/24/25 23:11 DC 09/24/25 23:12 50 ML Dextrose/Sodium Chloride 1,000 ml @ 100 mls/hr Q10H IV 09/24/25 23:15 09/24/25 23:16 100 MLS/HR Vital Signs 09/24/25 09/24/25 22:18 23:13 Temp 97.8 Pulse 80 82 Resp 16 16 B/P (MAP) 119/72 99/55 (70) Pulse Ox 97 98 Laboratory Tests Test 09/24/25 22:24 09/24/25 23:10 09/24/25 23:23 09/24/25 23:58 Glucometer 89 28 *L CBC Comment Sodium Level 139 Potassium Level 3.8 Chloride Level 109 H Carbon Dioxide Level 25.6 Anion Gap 4 L Blood Urea Nitrogen 14 Creatinine 0.60 Estimated GFR/1.73 m2 > 90 BUN/Creatinine Ratio 23.3 H Glucose Level 124 H Calcium Level 7.4 L Magnesium Level 1.7 Albumin 3.0 L Procalcitonin < 0.05 Chemistry Comments EKG/XRAY/CT/US/VASC/MRI EKG : Additional Comment EKG interpreted by myself shows time of 2312, rate 78, junctional rhythm, normal axis, no ST changes Medical Decision Making Additional information obtaine: old records Findings Patient presents to the emergency room with hypoglycemia. Differentials include but are not limited to infectious process, glucose intake/insulin administration administration errors. Insulin Billie, suicidal attempt/malingering. That has patient continued to be hypoglycemic despite not administering any insulin we will admit for further investigation. Possible insulinoma. We will defer to admitting physicians for further investigation. Patient requiring dextrose drip Diff Dx GI Bleed:Consideration: Include: AE fistula, Angiodysplasia, Bleeding diathesis, Blood loss anemia, Carcinoma, Diverticulosis, Diverticulitis, Esophageal varicies, Esophagitis, Gastritis, Gastroenteritis, Inflammatory BD, Alida-Torres syndrome, Meckel's diverticulum, PUD, Other Diff Dx Pain:Considerations: Include: AAA, -Complete, - Incomplete, -Inevitable, -Missed, -Threatened, Abruptio placentae, Angina/SD, Aortic dissection, Appendicitis, Bowel obstruction, Cholangitis, Cholecystitis, Cholelithasis, Constipation, Diverticular disease, Dysmenorrhea, Ectopic , Esophageal rupture, Esophagitis, Gastritis/PUD, Gastroenteritis, GI hemorrhage, Hernia, Hepatitis, Inflammatory BD, Ischemic bowel, Mass, Ovarian cyst/torsion, Pancreatitis, PID, Porphyria, Trauma, intraabdominal, Urinary obstruction, Urinary tract infection, Urolithiasis, Other Diff Dx N/V/D:Considerations: Include: Appendicitis, Bowel obstruction, Dehydration, DKA, Diarrhea - bacterial, Diarrhea - parasitic, Diarrhea - viral, Diverticulitis, Diverticulosis, Drug toxicity, Electrolyte imbalance, Food poisoning, Gastroenteritis, GE reflux, GI bleed, Hepatitis, Hernia, Hypovolemia, Hypotension, Inflammatory BD, Impaction, Malnutrition, Pancreatitis, , PUD, Renal failure, Urolithiasis, Urinary obstruction, UTI, Other Diff Dx Rectal:Considerations: Include: Fissure, Fistula, Foreign body, Impaction, Perirectal abscess, Rectal prolapse, Subcutaneous abscess, Thrombosed hemorrhoid, Ulcer, UTI, Other Departure Admitted to Inpatient Unit: yes, to hospitalist Impression: Primary Impression: Hypoglycemia Condition: Guarded Referrals: NO PRIMARY CARE PROVIDER (PCP) Critical Care Note Total Time (mins): 68 Critical Care Note The very real possibility of a deterioration of this patient's condition required the highest level of my preparedness for sudden, emergent intervention. I provided critical care services, which included medication orders, frequent reevaluations of the patient's condition and response to treatment, ordering and reviewing test results, and discussing the case with various consultants. Excludes time spent performing separately billable procedures. The critical care time associated with the care of the patient was 68 minutes not counting procedures Signature Scribe Signature: No scribe Attestation: The note accurately reflects work and decisions made by me.George Castro MD 09/25/25 00:17 GEORGE CASTRO MD Sep 24, 2025 23:07
[2025-09-24] MEDS: dextrose 50%-water 50ml dispensing syringe IV ONE (23:12)
--- NOTE | 2025-09-24 23:15 | ELECTROCARDIOGRAPH REPORT ---
[facility] Test Date: 2025-09-24 Test Time: 23:12:10 Pat Name: CHARLY COOL Department: [facility] Patient ID: [id number] Room: ORTHO 4014 Gender: F Tele Tech: ERIC : 1980 Requested By: АНДРЕЙ LINCOLN Order Number: [id number] Reading MD: Dr. TRACIE Walden Measurements Intervals [place] Rate: 78 P: 0 NE: 0 QRS: 63 QRSD: 110 T: 67 QT: 396 QTc: 452 Interpretive Statements narrow complex regular rhythm, sinus/junctional rhythm Low voltage, extremity and precordial leads Electronically Signed On 09-27-2025 13:07:[address] TRACIE Walden Please click the below link to view image of tracing.
--- NOTE | 2025-09-24 23:36 | RADIOLOGY REPORT ---
EXAM: DI CHEST,SINGLE VIEW TECHNIQUE: Single frontal chest radiograph CLINICAL HISTORY: SEPSIS COMPARISON: None FINDINGS/IMPRESSION: The lungs are clear. The cardiomediastinal silhouette is unremarkable. No pleural effusion or pneumothorax. No acute osseous abnormality.
[2025-09-24 23:39] LABS: CREATININE 0.60 MG/DL (0.40-0.90); TOTAL CARBON DIOXIDE 25.6 MMOL/L (24-32); eCRCL 110 ML/MIN; eGFR > 90 ML/MIN
[2025-09-25] VITALS (7 sets, daily range): BP systolic 113–136; BP diastolic 44–84; PULSE 75–80; RESP 13–16; TEMP 97.2–98.1; O2SAT 96–98
[2025-09-25 00:16] LABS: MEAN PLATELET VOLUME 7.2 FL (7.4-10.4); RED CELL DISTRIBUTION WIDTH 21.1 % (11.5-14.5)
[2025-09-25] MEDS ORDERED: magnesium sulf-water 2g/50mL 50 ML IV PRN (00:30)
[2025-09-25] MEDS ORDERED: potassium Cl 20 mEq SR tablet PO PRN ×2 (00:30)
[2025-09-25] MEDS ORDERED: magnesium hydroxide 30ml (MOM) UD suspension PO PRN (00:30)
[2025-09-25] MEDS ORDERED: potassium Cl 40MEQ/1/2NS 520ml 520 ML IV PRN (00:30)
[2025-09-25] MEDS ORDERED: magnesium sulf-water 4G/100mL 100 ML IV PRN (00:30)
[2025-09-25] MEDS ORDERED: magnesium Cl slow-release 64mg tablet PO PRN (00:30)
[2025-09-25] MEDS ORDERED: mag hydrox/Alum hydrox/simeth 30ml oral suspension PO PRN (00:30)
[2025-09-25 01:03] LABS: PLATELET ESTIMATE NORMAL
[2025-09-25 01:05] LABS: ELLIPTOCYTES 1+
[2025-09-25] MEDS ORDERED: ERGO500056 PO (01:54)
[2025-09-25] MEDS ORDERED: FERR325T29 (01:54)
[2025-09-25] MEDS ORDERED: INSU100I61 (01:54)
[2025-09-25] MEDS ORDERED: LANTUS SQ (01:54)
[2025-09-25 02:00] LABS: PRO BRAIN NATRIURETIC PEPTIDE 61 PG/ML (0-125)
[2025-09-25] MEDS ORDERED: glucagon, human recombinant 1mg kit SUBCUT PRN (02:05)
[2025-09-25] MEDS ORDERED: DEXTROSE 15 GM of carb/4 tabs (each vial/BOTTLE has 4 tablets) PO PRN ×2 (02:05)
[2025-09-25] MEDS ORDERED: dextrose 50%-water 50ml dispensing syringe IV PRN ×2 (02:05)
--- NOTE | 2025-09-25 02:09 | HISTORY AND PHYSICAL-Residence ---
History & Physical Providers to CC Resident Creating Document: AMANDA SALAZAR, RES ~ History of Present Illness Primary Medical Doctor: randall díaz Reason for Admit\Complaint: Hypoglycemia History of Present Illness This is a 45-year-old female with a history of type 1 diabetes s/p gastric bypass surgery, s/p cholecystectomy presents to the ER with has been with a chief complaint of frequent hypoglycemia episodes. Patient has a dexcom attached to her left chest which showed readings of 25, 29. She has been dealing with hypoglycemia since the last two months, but in the last two days her blood sugars were below 40 despite not taking any insulin. Her last dose of insulin was two days ago. Patient has symptoms of sweating, paleness, confusion, drowsiness, blurry vision, nausea and agitation during these episodes. Patient tries to eat or drink something during these episodes. She denies any seizures, fever, hyperglycemia episodes, history of pancreatitis or heavy alcohol use. 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 She also endorses having chronic diarrhea since the last 10 years following gastric bypass surgery with fatty sticky stools. Allergies: Coded Allergies: Penicillins (Verified Allergy, Unknown, 07/22/25) Sulfa (Sulfonamide Antibiotics) (Verified Allergy, Unknown, 07/22/25) daptomycin (Unverified Allergy, Unknown, 07/22/25) diphenhydramine (Verified Allergy, Unknown, 07/22/25) lorazepam (Verified Allergy, Unknown, 07/22/25) Home Medications Home Medications Active Reported Lantus* (Insulin Glargine) 100 Unit/1 Ml Vial SQ Vitamin D2 (Ergocalciferol (Vitamin D2)) 1,250 Mcg (15964 Unit) Capsule 1 Cap PO Q7D Insulin Lispro Kwikpen U-100 (Insulin Lispro) 100 Unit/Ml Insuln.pen Ferrous Sulfate 325 Mg (65 Mg Iron) Tablet Past Medical History Past Medical History type 1 diabetes Past Surgical History Surgical History Comment s/p gastric bypass surgery, s/p cholecystectomy Past Social History Social History Comment Denies smoking, alcohol, drug use ROS ROS Constitutional: Positive for fatigue, nausea, diarrhea, confusion. No fever, chills, dizziness,weight gain or loss Eyes: Blurring of vision No pain, erythema, discharge ENT: No sore throat, epistaxis, tinnitus Cardiovascular: No palpitations, syncope, lower extremity edema, paroxysmal nocturnal dyspnea Respiratory: No hemoptysis Gastrointestinal: Normal appetite. No constipation, hematemesis, abdominal pain, bloating, melena or fresh blood Genitourinary: No frequency, urgency, nocturia, hematuria or dysuria Musculoskeletal: No arthralgias or myalgias Integumentary: No change in skin, hair, nails. No swelling, bruising, abrasions Neurologic: No headache, neck pain, numbness or tingling of the extremities, weakness Psychiatric: No delusions, depression, loss of interest in normal activity or change in sleep pattern, hallucinations, suicidal ideations Endocrine: No polydipsia, polyuria, change in appetite, heat or cold intolerance, sweating, dry skin Hematological: No bleeding, petechiae, bruising Allergies: No asthma or urticaria Exam Vitals: Vital Signs Date Time Temp Pulse Resp B/P (MAP) Pulse Ox O2 Delivery O2 Flow Rate FiO2 09/25/25 01:58 75 12 97/65 (76) 96 0 09/24/25 22:18 97.8 General: General: Awake and Alert oriented, no acute distress. HEENT: Conjunctiva pink, Sclera clear, Mucus Membranes moist Neck: Supple without masses and tenderness. Resp: Unlabored. Equal breath sounds bilaterally. Heart: Regular rhythm, normal S1 and S2, no rub, murmur or gallop, muffled heart sounds. Abdomen: Soft and non tender no organomegaly. Normal bowel sounds x4 quadrant normoactive. No guarding or rigidity. Extremities: Normal ROM, no swelling, nontender. No cyanosis,clubbing or edema. EQUAL OPPORTUNITY SPECIALIST: Mild confusion, generalized fatigue. No gross motor or sensory abnormalities. Skin: Warm and Dry. Diagnostic Data Last Recorded Lab Results: 09/24/25 8290 09/24/25 3466 Advance Care Planning Advanced Care plannin - 30 Minutes (I spent a total of 17 minutes on reviewing various resuscitative measures/ ACP with the patient at the time of admission. The patient has decided on a full code status) Additional Plan Altered level of consciousness Metabolic encephalopathy secondary to severe hypoglycemia Blood sugar was 25, 29 on arrival. Patient received one bag of D50 following which blood sugar improved. However the blood sugar dipped down to 40s and needed to be started on D10 drip. A1c 4.9. Patient is currently on hypoglycemia protocol. Follow up with a CT abdomen to rule out insulinoma/pancreatic abnormalities. Follow up with a.m. cortisol, C-peptide and insulin levels to rule out surreptous insulin use hypoglycemia Microcytic hypochromic anemia likely secondary to iron-deficiency Likely secondary to gastric bypass surgery. Follow up with iron studies. Started on iron supplements Code Status: Full code DVT Prophylaxis: Heparin Analgesia/Sedation: Tylenol Lines/Tubes: PIV Gi Prophylaxis: None Nutrition: Regular diet PT: Yes Prognosis: Guarded Disposition: Admit to surgical floor Amanda Day MD Internal Medicine Resident PGY-2 I saw and discussed the case with the resident team Agree with assessment and plan I asked to increase the D10 rate as she was still borderline Date of Service: Sep 25, 2025 Billing Provider: JODEE TOMPKINS MD,AMANDA DAY, RES Sep 25, 2025 02:09 JODEE TOMPKINS MD Sep 25, 2025 12:03
[2025-09-25 07:57] LABS: % IRON SATURATION 4 % (11-46)
[2025-09-25] MEDS: K and/or MAG REPLACEMENT MC SCH (08:00)
[2025-09-25] MEDS: heparin, porcine 5000 units/ml vial SQ SCH (08:24)
[2025-09-25] MEDS: docusate sod 100mg capsule PO SCH (08:24)
--- NOTE | 2025-09-25 10:15 | RADIOLOGY REPORT ---
CLINICAL HISTORY: INSULINOMA TECHNIQUE: CT of the abdomen and pelvis was performed without IV contrast. This exam was performed according to our departmental dose optimization program. Up-to-date CT equipment and radiation dose reduction techniques are utilized as appropriate. CTDI 28 DLP 2113 COMPARISON: CT CT ABDOMEN PELVIS on DOS: 03/04/25 FINDINGS: Abdomen/Pelvis: The spleen, adrenal glands, pancreas, kidneys, liver, bladder, and uterus are grossly unremarkable. The gallbladder is absent. The abdominal aorta is normal in course and caliber. There are minimal aortic atherosclerotic calcifications. There are advanced atherosclerotic calcifications within the arterial vessels of the imaged bilateral lower extremities. There is no free intraperitoneal air or fluid. There is no enlarged abdominal pelvic lymph node. There is no bowel wall thickening or dilatation. The appendix is normal. There has been Francisco-en-Y gastric bypass surgery. There is a moderate to large amount of stool in the colon. Other: The imaged lower thorax demonstrate minimal linear atelectasis at both lung bases. No acute osseous abnormality is evident. Impression: No acute noncontrast CT abnormality in the abdomen / pelvis. Francisco-en-Y gastric bypass surgery. Cholecystectomy. Constipation. If there is continued concern for insulinoma, please consider abdominal MRI with and without IV contrast.
[2025-09-25] MEDS: ondansetron/PF 4mg/2ml inj IV PRN (11:08)
[2025-09-25] MEDS: metoclopramide 5 mg/ml inj IV PRN (12:23)
--- NOTE | 2025-09-25 14:45 | PROGRESS NOTE- Residence ---
Progress Note - Resident Providers to CC Resident Creating Document: YOLISANUSHA GIRON, WILIAM ~ Antibiotic Timeout Antibiotic Ordered?: No Subjective Seen and examined at the bedside today. Reports hypoglycemic episode for the past one year with increased frequency in the recent times. She is hypoglycemic even though she is not on any insulin for the past two days. Also reports diarrhea. Objective Vital Signs Date Time Temp Pulse Resp B/P (MAP) Pulse Ox O2 Delivery O2 Flow Rate FiO2 09/25/25 10:00 98.1 79 16 119/70 (86) 98 Room Air 09/25/25 03:00 0.0 Result Diagram: 09/24/25 3198 09/25/25 0546 General: Awake and Alert oriented, no acute distress. HEENT: Conjunctiva pink, Sclera clear, Mucus Membranes moist Neck: Supple without masses and tenderness. Resp: Unlabored. Equal breath sounds bilaterally. Heart: Regular rhythm, normal S1 and S2, no rub, murmur or gallop, Abdomen: Soft and non tender no organomegaly. Normal bowel sounds x4 quadrant normoactive. No guarding or rigidity. Extremities: Normal ROM, no swelling, nontender. No cyanosis,clubbing or edema. [employer]: No gross motor or sensory abnormalities. Skin: Warm and Dry. Plan Plan Metabolic encephalopathy secondary to severe hypoglycemia-improving Blood sugar was 25, 29 on arrival. Patient received one bag of D50 following which blood sugar improved. However the blood sugar dipped down to 40s and needed to be started on D10 drip. A1c 4.9. Patient is currently on hypoglycemia protocol. Follow up with a CT abdomen to rule out insulinoma/pancreatic abnormalities. Follow up with a.m. cortisol, C-peptide and insulin levels to rule out surreptous insulin use hypoglycemia 09/25/2025 Blood glucose maintaining to 100s with continuous D5 drip. Abdominal CT showed no abnormalities. Abdominal CT with contrast ordered to look for any pancreatic malignancies like insulinoma/glucagon, Total insulin, free insulin, C-peptide, cortisol pending Microcytic hypochromic anemia likely secondary to iron-deficiency Likely secondary to gastric bypass surgery. Follow up with iron studies. Started on iron supplements 09/25/2025 Iron panel shows findings of iron-deficiency anemia Stool occult blood ordered Started on iron supplementation Code Status: Full code DVT Prophylaxis: Heparin Analgesia/Sedation: Tylenol Lines/Tubes: PIV Gi Prophylaxis: None Nutrition: Regular diet PT: Yes Prognosis: Guarded Anusha Harrison M.D PGY2 Date of Service: Sep 25, 2025 Billing Provider: AWILDA ASN MD,ANUSHA, RES Sep 25, 2025 14:45
[2025-09-25] MEDS ORDERED: iohexol 300mg/ml 100ml inj. ONE (16:04)
[2025-09-25] MEDS: iron polysaccharide complex 150mg capsule PO SCH (16:05)
--- NOTE | 2025-09-25 17:21 | RADIOLOGY REPORT ---
CLINICAL HISTORY: possible pancreatic tumors TECHNIQUE: CT of the abdomen and pelvis was performed with intravenous contrast . This exam was performed according to our departmental dose optimization program. Up-to-date CT equipment and radiation dose reduction techniques are utilized as appropriate. WID: COMPARISON: CT CT ABDOMEN PELVIS on DOS: 09/25/25, CT CT ABDOMEN PELVIS on DOS: 03/04/25 FINDINGS: The imaged lower lungs are unremarkable. The liver, spleen, adrenal glands, and kidneys are within normal limits. Status post cholecystectomy. The pancreas is within normal limits. Status post Francisco-en-Y bypass. Large colonic stool burden. The appendix is within normal limits. The small bowel is unremarkable. The imaged vessels are within normal limits. No enlarged lymph nodes. The uterus and adnexa are unremarkable. The bones are unremarkable. IMPRESSION: Normal CT appearance of the pancreas. If there is persistent clinical concern for pancreatic tumors, consider MRI of the abdomen with contrast for best assessment. Status post Francisco-en-Y bypass and cholecystectomy Large colonic stool burden
[2025-09-25] MEDS: INSULIN LISPRO 100 UNIT/ML INSULN.PEN MULTI-DOSE SQ ONE (18:54)
[2025-09-25] MEDS: HYDROcodone/acetaminophen 5mg/325mg tablet PO PRN (20:06)
[2025-09-25] MEDS: INSULIN LISPRO 100 UNIT/ML INSULN.PEN MULTI-DOSE SQ SCH (21:05)
[2025-09-26 02:32] LABS: OCCULT BLOOD STOOL NEGATIVE (Neg)
[2025-09-26 05:51] LABS: MEAN PLATELET VOLUME 7.4 FL (7.4-10.4); RED CELL DISTRIBUTION WIDTH 20.9 % (11.5-14.5)
[2025-09-26 06:00] VITALS: BP 118/63; PULSE 81; RESP 16; TEMP 97.4; O2SAT 95
[2025-09-26 06:10] LABS: CHOL/HDL RATIO 2.1 (0.00-4.99); CREATININE 0.53 MG/DL (0.40-0.90); LDL CHOLESTEROL 40 MG/DL (50-100); TOTAL CARBON DIOXIDE 26.2 MMOL/L (24-32); eCRCL 119 ML/MIN; eGFR > 90 ML/MIN
[2025-09-26 07:41] VITALS: RESP 16; O2SAT 95
[2025-09-26 10:00] VITALS: BP 127/80; PULSE 77; RESP 20; TEMP 97.6; O2SAT 97
[2025-09-26] MEDS: INSULIN LISPRO 100 UNIT/ML INSULN.PEN MULTI-DOSE SQ ONE (10:04)
[2025-09-26] MEDS ORDERED: INSULIN LISPRO 100 UNIT/ML INSULN.PEN MULTI-DOSE SQ SCH ×2 (12:00)
[2025-09-26] MEDS: INSULIN LISPRO 100 UNIT/ML INSULN.PEN MULTI-DOSE SQ SCH (12:00)
--- NOTE | 2025-09-26 16:14 | DISCHARGE SUMMARY-Residence ---
Discharge Summary Providers to CC Resident Creating Document: WOJCIECH GARCIAWILIAM ~ Discharge Summary Admission Diagnosis: hypoglycemia Hospital Course DATE OF ADMISSION: 09/25/25 DATE OF DISCHARGE: 09/26/25 Discharge Diagnosis\\Comment: Metabolic encephalopathy secondary to severe hypoglycemia; resolved Recurrent hypoglycemia; H/O Type 1 diabetes Suspicion for surreptitious use of insulin Microcytosis and hypochromia secondary to iron-deficiency anemia Operations\\Procedures: None Consultants: None Complications: None Condition on DC: Stable for transfer Discharge Summary: This is a 45-year-old female patient with a past medical history of type 1 diabetes mellitus who presents to the hospital with symptoms of metabolic encephalopathy secondary to severe hypoglycemia, her presentation blood glucose was 25 and 29. She uses a Dexcom monitor which revealed presence of increasing hypoglycemic episodes over the last three days. On outpatient, she reported that she has not taken her insulin due to the recurrent episodes of hypoglycemia and has been hypoglycemic despite no medication changes over the last 1-2 months. The insulin and C-peptide levels were also ordered, labs are still pending. She was evaluated with a CT abdomen and pelvis with IV contrast to rule out presence of any hormone producing tumors. The CT was unremarkable for any pancreatic tumors. We also consulted GI for a possible endoscopy to rule out any presence of tumors in the ampulla while we await for studies. But in the period of time, the patients blood sugars were as high as 300 due to which we had to administer subcutaneous lispro to prevent development of diabetic ketoacidosis with her history of type 1 diabetes. However, due to the requirement of monitoring her blood glucose levels closely and to monitor for hypoglycemic episodes, the plan was to hold insulin and not give anymore supplemental insulin unless her blood sugar was greater than 500 for more than 2-3 readings. On obtaining this information, the patient became agitated and was adamant about her insulin. She also wanted to increase her carbs in her diet. When she was educated about the reasoning behind the plan, she was unwilling to agree with the plan and repeatedly stated "you will have a law suit". She was explained the plan twice by our team as well as the nursing staff with the patient decided to leave AMA. The documentation was signed and she left with the in a medically stable condition. Physical exam at discharge: General: Awake and Alert, no acute distress. HEENT: Conjunctiva pink, Sclera clear, Mucus Membranes moist. Neck: Supple without masses and tenderness. Resp: Unlabored. Lungs clear to auscultation bilaterally. Heart: Regular Rate and rhythm, normal S1 and S2 with a johnson-diastolic murmur in the pulmonic area, rub or gallop. Abdomen: Soft and non tender no organomegaly Extremities: No cyanosis,clubbing or edema. Skin: Warm and Dry. Labs at discharge: WBC 5.8, RBC 3.5, hemoglobin 8.3, platelets 169 Sodium 139, potassium 3.8, chloride 109, bicarb 25.6, BUN 14, creatinine 0.6, blood glucose 124 Hemoglobin A1c 4.9 *Problems/Diagnosis: (1) Hypoglycemia associated with diabetes Status: Acute Total Time Spent on D/C: Up to 30 Minutes Date of Service: Sep 26, 2025 Billing Provider: AWILDA SAN MD Common Visit Codes: 07203-VEU/OBS DISCH DAY >30min WOJCIECH GARCIA, WILIAM Sep 26, 2025 15:57 AWILDA SAN MD Sep 27, 2025 08:37
[2025-09-28 08:12] LABS: C-PEPTIDE, SERUM <0.1 ng/mL (1.1-4.4); CORTISOL LC 11.6 ug/dL (6.2-19.4)
== END 2025-09-26 12:35 | disposition left against medical advice (07) | DRG 52 ==
LOC: ER 22:17 → ED HOLD 09-25 00:32 → ORTHO 4S 09-25 02:25
PROVIDERS: ADMIT Internal Medicine; ATTEND Internal Medicine
DX: G93.41 Metabolic encephalopathy (principal); D50.9 Iron deficiency anemia, unspecified; E10.649 Type 1 diabetes mellitus with hypoglycemia without coma; E78.5 Hyperlipidemia, unspecified; Z53.29 Procedure and treatment not carried out because of patient's decision for other reasons; Z88.0 Allergy status to penicillin; Z88.2 Allergy status to sulfonamides; Z88.8 Allergy status to other drugs, medicaments and biological substances; Z90.49 Acquired absence of other specified parts of digestive tract
CPT/HCPCS: 36415; 71045; 74176; 74177; 80048; 80053; 80061; 82272; 82728; 82948; 83036; 83525; 83527; 83540; 83550; 83735; 83880; 84132; 84145; 84466; 84681; 85008; 85025; 87081; 93005; 99291; G0378; J1644; J1815; J2405; J2765; J3490; J7042; Q9967